=== PATIENT | female | born 1985 | race Hispanic/Latino ===

== ENCOUNTER 2021-06-26 14:46 | Outpatient (CLI) | payer BC ==
[2021-06-27 11:37] LABS: SARS-CoV-2 PCR by NAA Not Detected (NotDetected)
== END 2021-06-26 14:47 | disposition home or self-care (01) ==
LOC: CSHLAB 14:46
PROVIDERS: ATTEND Advanced Practice Midwife
DX: Z20.822 Contact with and (suspected) exposure to COVID-19 (principal)
CPT/HCPCS: U0003; U0005

== ENCOUNTER 2021-06-28 10:22 | Day surgery (SDC) | payer BC ==
[2021-06-28 11:29] VITALS: BP 129/61; TEMP 97.8
[2021-06-28] MEDS ORDERED: Acetaminophen 500 MG TAB PO SCH (11:30)
[2021-06-28 11:33] VITALS: BMI 27.9
[2021-06-28] MEDS ORDERED: Iron Sucrose Complex 500 MG in Sodium Chloride 0.9% 250 ML 250 ML IVPB SCH (12:00)
== END 2021-06-28 16:50 | disposition home or self-care (01) ==
LOC: CSHLD/OP 10:22
PROVIDERS: ATTEND Advanced Practice Midwife
DX: O99.012 Anemia complicating pregnancy, second trimester (principal); Z3A.25 25 weeks gestation of pregnancy
CPT/HCPCS: 96361; 96365; 96366; 99282; J1756; J7050

== ENCOUNTER 2021-07-23 14:51 | Outpatient (CLI) | payer BC ==
[2021-07-24 08:57] LABS: SARS-CoV-2 PCR by NAA Not Detected (NotDetected)
== END 2021-07-23 14:52 | disposition home or self-care (01) ==
LOC: CSHLAB 14:51
PROVIDERS: ATTEND Advanced Practice Midwife
DX: Z20.822 Contact with and (suspected) exposure to COVID-19 (principal)
CPT/HCPCS: U0003; U0005